=== PATIENT | female | born 1985 | race Caucasian/White ===

== ENCOUNTER 2018-05-15 09:42 | Day surgery (SDC) | payer OTHER ==
[2018-05-15] MEDS ORDERED: PROPOFOL INJ 200 MG/20 ML VIAL IV ONE (12:04)
[2018-05-15] MEDS ORDERED: MORPHINE SULFATE 10 MG/ML INJ IV PRN (12:18)
[2018-05-15] MEDS ORDERED: MEPERIDINE HCL/PF INJ 25 MG/1 ML DISP.SYRIN IV PRN (12:18)
[2018-05-15] MEDS ORDERED: PROMETHAZINE HCL INJ 25 MG/1 ML VIAL IV PRN ×2 (12:18)
[2018-05-15] MEDS ORDERED: DIPHENHYDRAMINE HCL 50 MG/ML VIAL IV PRN (12:18)
[2018-05-15] MEDS ORDERED: FENTANYL CITRATE INJ/PF 100 MCG/2 ML AMPUL IV PRN ×3 (12:18)
--- NOTE | 2018-05-15 12:35 | Operative Report ---
Operative Report DATE OF SURGERY: 05/15/18 Operative Report: The risks, benefits and alternatives of the procedure including the risk of bleeding, perforation requiring surgery have been explained to the patient in detail and informed consent has been obtained. Patient is taken back to the operating room and placed in a left, lateral decubital position. Timeout was called. Propofol medication is administered. A rectal examination is done which did not reveal any masses, tears or fissures. An Olympus videoscope was introduced into the patient's rectum. The scope was then carefully advanced all the way to the cecum. The cecum was identified by the usual anatomical landmarks including the ileocecal valve as well as the appendiceal office. Photodocumentation is obtained. The scope was then sequentially pulled back via the various segments of the colon including the ascending colon, hepatic flexure, transverse colon, splenic flexure, descending colon and finally into the rectosigmoid portions of the colon. Retroflexion maneuver is performed. PREOPERATIVE DIAGNOSIS: Change of bowel habits POSTOPERATIVE DIAGNOSIS: Mild right-sided colon inflammation status post biopsy rule out lymphocytic, microscopic, collagenous colitis. OPERATION: Colonoscopy with biopsy SURGEON: EVE NAVARRETE ANESTHESIA: LMAC TISSUE REMOVED OR ALTERED: As noted above. COMPLICATIONS: None. ESTIMATED BLOOD LOSS: None. INTRAOPERATIVE FINDINGS: As noted above. PROCEDURE: Patient tolerated the procedure well. No immediate postprocedure complications are noted. Patient discharged in good condition. Discharge date 05/15/2018. Discharge diet: Regular. Discharge activity: Regular. 2-3-week follow-up to discuss findings. Patient is instructed to call the office or proceed to the emergency room should there be any further problems or questions. Wait on the pathology.
[2018-05-15] MEDS ORDERED: SIMETHICONE 80 MG TAB.CHEW PO PRN (13:46)
[2018-05-15] MEDS ORDERED: ACETAMINOPHEN 325 MG TABLET PO PRN (13:46)
[2018-05-15] MEDS ORDERED: PROMETHAZINE HCL INJ 25 MG/1 ML VIAL INJ PRN (13:47)
[2018-05-15 13:49] VITALS: BP 134/79
== END 2018-05-15 13:40 | disposition home or self-care (01) ==
LOC: OROUT 09:42
PROVIDERS: ATTEND Internal Medicine Gastroenterology
DX: K52.9 Noninfective gastroenteritis and colitis, unspecified (principal); E03.9 Hypothyroidism, unspecified; E78.5 Hyperlipidemia, unspecified; Z88.0 Allergy status to penicillin; Z79.899 Other long term (current) drug therapy
CPT/HCPCS: 45380; 88305 ×2; J2704; 811

== ENCOUNTER → 2018-07-23 | Outpatient (CLI) | payer OTHER ==
--- NOTE | 2018-07-24 12:33 | RADIOLOGY REPORT (SQ) ---
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 RADIONUCLIDE AND DOSE: 302 microcuries I-123. The route of agent administration: Oral ADDITIONAL DRUGS AND DOSES: None. TECHNIQUE: Iodine uptake was measured at 4 and 24 hours. Images of the neck were acquired. LIMITATIONS: None. FINDINGS: 4 HOUR UPTAKE RADIO-IODINE: 21.7%. Normal Range of 5-20% [facility] Normal Range of 5-15% [facility] Normal Range of 5-15% [facility] 24 HOUR UPTAKE RADIO-IODINE: 24.35%. Normal Range of 7-35% [facility] Normal Range of 8-35% [facility] Normal Range of 15-30% [facility] SCAN: Homogeneous uptake of the radionuclide throughout both lobes of the gland and isthmus without a reas of increased or decreased activity. Normal size. OTHER: No other significant finding. IMPRESSION: Normal radionuclide scan of the thyroid gland. The 4 hour uptake is slightly elevated. The 24 hour uptake is within normal limits. TECHNICAL DOCUMENTATION: JOB ID: [id number] [employer]- All Rights Reserved Reading location - IP/workstation name: [email or web address]
== END ==
LOC: RAD 09:34
PROVIDERS: ATTEND Family Medicine
DX: E04.2 Nontoxic multinodular goiter (principal)
CPT/HCPCS: 78014; A9516